=== PATIENT | female | born 1985 | race Two or more races ===

== ENCOUNTER → 2023-11-16 10:57 | Outpatient (BNVA) | payer OTHER, SELFPAY | PROVIDERS: PCP Nurse Practitioner Family; Visit Provider Physician Assistant Surgical ==

== ENCOUNTER 2024-01-08 08:02 | Outpatient (AMB) | payer OTHER, SELFPAY ==
--- NOTE | 2024-01-08 09:14 | MHC.OFFVISWM ---
VS Expanded 01/08/24 09:23 Height 5 ft 3 in Weight 298 lb 6 oz BMI 52.8 Body Fat % 51.3 Body Fat Mass 153 Fat Free Mass 145.6 Visceral Fat Rating 18 Body Water % 34.9 Body Water Mass 104.2 Basal Metabolic Rate/Score 2,125 Intake Visit Reasons: [employer] IN[employer] SW[employer] BMI 52.9 Allergies Penicillins Allergy (Intermediate, Verified 01/08/24 09:14) Hives acetaminophen Adverse Reaction (Intermediate, Verified 01/08/24 09:14) Itchy Eyes Zvrtlyl-SOP-JaN Reductase Inhibitor Adverse Reaction (Intermediate, Verified 01/08/24 09:14) Hives Medication List - Last Reconciled 01/08/24 by Behzad Vanessa MD celecoxib 100 mg PO BID omeprazole 20 mg PO DAILY HPI HPI [employer] BMI 52.9: Details: Start time: 9.06am, End time: 9.51am ?I spent 40 minutes speaking with the patient on the phone plus an additional 5 minutes reviewing and updating records for a total of 45 minutes HPI Comments Details: Previous weight loss efforts: self diets and exercise in the Gym Wakes up: 6.40am, sleeps: 11pm Breakfast: skips Lunch: 12.30pm (sandwich) Dinner: 5.30pm (rice, pasta, chicken) Snacks: none Exercise: Gym Fluids: Coffee: none, hot tea: 3 cups/d (sugar, or honey), soda: regular Gingerale, juice: none, ETOH: 1-2/month PFSH Medical History (Updated 01/08/24 @ 09:17 by Behzad Vanessa MD) GERD (gastroesophageal reflux disease) DJD (degenerative joint disease) Morbid obesity Surgical History (Updated 01/08/24 @ 09:17 by Behzad Vanessa MD) H/O adenoidectomy History of tonsillectomy Hx of section Family History (Updated 01/04/24 @ 09:14 by Nivia Manzo CMA) Family/Other No problems noted. Social History (Updated 11/16/23 @ 13:03 by Nivia Manzo CMA) Alcohol intake: current Alcohol intake frequency: holidays/special occasions only Alcohol type: wine and hard liquor Patient Tobacco Use Status: Current someday Tobacco user Telehealth Telehealth Telehealth Platform: Telephone Location of provider rendering services: practice address Location of patient: address on file Patient Identification confirmed using: Name, : Yes Telehealth method: voice only Patient verbally consented to treatment: Yes Patient verbally consented to billing insurance company: Yes Patient informed of any privacy concerns related to visit: Yes Minutes spent on Phone/Video with Pt.: 45 Assessment & Plan Assessment & Plan (1) Morbid obesity: Code(s): E66.01 - Morbid (severe) obesity due to excess calories Category: Medical Plan: 1.? Plan for lap sleeve gastrectomy. If diaphragmatic or ventral hernias are present at time of surgery, these will be repaired laparoscopically as well. Risks and complications include possible conversion to an open procedure, anastomotic leak, bleeding requiring transfusion, small bowel obstruction, , DVT and pulmonary embolism, cardiac, or pulmonary complications, as watermelon harvesting supervisor complications such as anastomotic ulcer, insufficient weight loss and vitamin deficiencies. I emphasized the importance of close follow-up, adherence to instructions and good communication. ? 2. You will receive a link of our software judy to generate an individualized nutritional and exercise plan specific for you. Please send me a screenshot of the plans you will generate Meal to include lean meat (beef, fish, pork, turkey, chicken), or bermudian yogurt, or egg whites, or beans with a salad with olive oil and fruits (berries, pears, apples, kiwi). Avoid salt, breads, potatoes, rice, pasta, desserts. ? ?3. If you choose shakes, each shake would be drunk slowly, like coffee in a period of 2 hours. ?4. If you choose bars, cut each bar in 4 pieces and eat each piece in 30min ?to make each bar last 2 hours. ?5. I emphasized the importance of measuring accurately the food portion and measure it when serving the food in plate ?6. The meal portions include a specific number of forks of meat and salad. You always eat the meat portion but you can replace up to half of salad/vegetables portion with rice, potatoes or pasta, or a fruit ?if you like. The less you do it the better weight loss will be. ?7. One full-size fork is what it can be scooped on the fork without falling aside and not what can be bit with the fork. Use regular forks like those you find in a typical restaurant. ?8.? Please send me weight measurements as soon as possible and then once a week. Always include your diet and exercise plan. ? 9. The best choice would be to purchase a stationary bike, elliptical or treadmill at home that can track calories. Let me know if you do so I can give you an exercise plan. ?10.?It is important of avoiding and for at least 18 months postoperatively and has been discussed at the infosession. ?11. Goal is to lose at least 1.5-2lbs per week ?12. Goal to lose 10% of your weight before surgery, which is about 30lbs. Ultimate weight goal: 268lbs before surgery 13. Please follow the diet plan exactly without any change. If you don't like something about the plan or you feel hungry you need to communicate with me so I can help you revise the plan. You should not change the plan yourself. 14. To be scheduled for EGD due to history of GERD. The possibility of biopsies was discussed. Patient needs to avoid use of NSAIDs and aspirin for 1 week prior to EGD. Risks of perforation and bleeding was discussed with the patient. This will be an outpatient procedure with IV sedation. Orders: Orders Insulin Today E66.01 - Morbid (severe) obesity due to excess calories, K21.9 - Gastro-esophageal reflux disease without esophagitis, M19.90 - Unspecified osteoarthritis, unspecified site Hemoglobin A1c Today E66.01 - Morbid (severe) obesity due to excess calories, K21.9 - Gastro-esophageal reflux disease without esophagitis, M19.90 - Unspecified osteoarthritis, unspecified site IRON PROFILE Today E66.01 - Morbid (severe) obesity due to excess calories, K21.9 - Gastro-esophageal reflux disease without esophagitis, M19.90 - Unspecified osteoarthritis, unspecified site Comprehensive Met. Panel Today E66.01 - Morbid (severe) obesity due to excess calories, K21.9 - Gastro-esophageal reflux disease without esophagitis, M19.90 - Unspecified osteoarthritis, unspecified site Zinc Today E66.01 - Morbid (severe) obesity due to excess calories, K21.9 - Gastro-esophageal reflux disease without esophagitis, M19.90 - Unspecified osteoarthritis, unspecified site C Reactive Protein Today E66.01 - Morbid (severe) obesity due to excess calories, K21.9 - Gastro-esophageal reflux disease without esophagitis, M19.90 - Unspecified osteoarthritis, unspecified site Vitamin B1 Today E66.01 - Morbid (severe) obesity due to excess calories, K21.9 - Gastro-esophageal reflux disease without esophagitis, M19.90 - Unspecified osteoarthritis, unspecified site Vitamin A Today E66.01 - Morbid (severe) obesity due to excess calories, K21.9 - Gastro-esophageal reflux disease without esophagitis, M19.90 - Unspecified osteoarthritis, unspecified site Ferritin Today E66.01 - Morbid (severe) obesity due to excess calories, K21.9 - Gastro-esophageal reflux disease without esophagitis, M19.90 - Unspecified osteoarthritis, unspecified site Vitamin D 25-OH Total Today E66.01 - Morbid (severe) obesity due to excess calories, K21.9 - Gastro-esophageal reflux disease without esophagitis, M19.90 - Unspecified osteoarthritis, unspecified site US abdomen comp w elastography Today E66.01 - Morbid (severe) obesity due to excess calories, K21.9 - Gastro-esophageal reflux disease without esophagitis, M19.90 - Unspecified osteoarthritis, unspecified site ECG 12 lead EKG Today E66.01 - Morbid (severe) obesity due to excess calories, K21.9 - Gastro-esophageal reflux disease without esophagitis, M19.90 - Unspecified osteoarthritis, unspecified site H Pylori Breath Test Today E66.01 - Morbid (severe) obesity due to excess calories, K21.9 - Gastro-esophageal reflux disease without esophagitis, M19.90 - Unspecified osteoarthritis, unspecified site Complete Blood Count Auto Diff Today E66.01 - Morbid (severe) obesity due to excess calories, K21.9 - Gastro-esophageal reflux disease without esophagitis, M19.90 - Unspecified osteoarthritis, unspecified site Lipid Panel Today E66.01 - Morbid (severe) obesity due to excess calories, K21.9 - Gastro-esophageal reflux disease without esophagitis, M19.90 - Unspecified osteoarthritis, unspecified site Vitamin B12 and Folate Today E66.01 - Morbid (severe) obesity due to excess calories, K21.9 - Gastro-esophageal reflux disease without esophagitis, M19.90 - Unspecified osteoarthritis, unspecified site TSH reflex Free T4 Today E66.01 - Morbid (severe) obesity due to excess calories, K21.9 - Gastro-esophageal reflux disease without esophagitis, M19.90 - Unspecified osteoarthritis, unspecified site XR chest 2V Today E66.01 - Morbid (severe) obesity due to excess calories, K21.9 - Gastro-esophageal reflux disease without esophagitis, M19.90 - Unspecified osteoarthritis, unspecified site FL upper GI w air Today E66.01 - Morbid (severe) obesity due to excess calories, K21.9 - Gastro-esophageal reflux disease without esophagitis, M19.90 - Unspecified osteoarthritis, unspecified site Referrals Behavioral Health Referral E66.01 - Morbid (severe) obesity due to excess calories, K21.9 - Gastro-esophageal reflux disease without esophagitis, M19.90 - Unspecified osteoarthritis, unspecified site Nutrition/Dietitian Referral E66.01 - Morbid (severe) obesity due to excess calories, K21.9 - Gastro-esophageal reflux disease without esophagitis, M19.90 - Unspecified osteoarthritis, unspecified site
[2024-01-08 09:23] VITALS: BMI 52.8
== END 2024-01-08 09:52 | disposition home or self-care (01) ==
LOC: HO.HBS 08:02
PROVIDERS: PCP Nurse Practitioner Family; Visit Provider Surgery
DX: E66.01 Morbid (severe) obesity due to excess calories (principal)
CPT/HCPCS: 99204

== ENCOUNTER → 2024-01-08 08:02 | Outpatient (BNVA) | payer OTHER, SELFPAY | PROVIDERS: PCP Nurse Practitioner Family; Visit Provider Surgery ==